=== PATIENT | female | born 1985 | race Two or more races ===

== ENCOUNTER 2018-12-04 14:38 | Emergency (ER) | payer SELFPAY ==
[~2018-12-04] VITALS: Ht 157.5 cm; Wt 81.0 kg
[2018-12-04] MEDS: BACITRACIN ZINC OINT UDPKT TOP ONE (17:45)
[2018-12-04] MEDS: KETOROLAC 30MG/ML VIAL IM ONE (17:45)
[2018-12-04] MEDS: TETANUS, DIPHTHERIA, PERTUSSIS VAC/PF 0.5ML (>7YR OLD) IM ONE (17:45)
[2018-12-04] MEDS: MORPHINE SULFATE 10 MG/ML CPJ IM ONE (17:45)
[2018-12-04] MEDS: LIDOCAINE HCL/PF 1% 10 MG/ML 5ML VIAL IJ ONE (17:45)
[2018-12-04 18:18] LABS: CLARITY URINE CLOUDY (CLEAR); COLOR URINE YELLOW (YELLOW); KETONES URINE TRACE (NEGATIVE); LEUKOCYTE ESTERASE URINE TRACE (NEGATIVE); NITRITE URINE POSITIVE (NEGATIVE); OCCULT BLOOD URINE TRACE (NEGATIVE); PROTEIN URINE NEGATIVE (NEGATIVE); SPECIFIC GRAVITY URINE 1.022 (1.005-1.030); UROBILINOGEN URINE 0.2 E.U./dL (0.2-1.0)
[2018-12-04 19:40] VITALS: BP 126/41
== END 2018-12-04 19:45 | disposition home or self-care (01) ==
LOC: ER 15:53
DX: S01.01XA Laceration without foreign body of scalp, initial encounter (principal); S20.219A Contusion of unspecified front wall of thorax, initial encounter; N39.0 Urinary tract infection, site not specified; M50.20 Other cervical disc displacement, unspecified cervical region; Z98.890 Other specified postprocedural states; V49.88XA Car occupant (driver) (passenger) injured in other specified transport accidents, initial encounter; Y93.89 Activity, other specified; Y92.89 Other specified places as the place of occurrence of the external cause; Y99.8 Other external cause status
CPT/HCPCS: 70450; 70486; 71045; 81003; 81025; 90471; 90715; 96372; 99284; J1885; J2270; J3490; Z7610